=== PATIENT | male | born 1940 | race Caucasian/White ===

== ENCOUNTER 2016-07-05 08:39 | Emergency (ER) | payer MEDICARE, BC ==
[~2016-07-05] VITALS: Ht 177.8 cm; Wt 74.2 kg
[~2016-07-05 08:39] MED LIST: FLUTI44I INH; IBUP200C PO; PARO10TA2 PO; SIMV40TA PO
[2016-07-05 08:52] VITALS: BP 144/95; PULSE 77; RESP 16; TEMP 98.5; O2SAT 94
[2016-07-05] MEDS ORDERED: SODIUM CHLOR 0.9% 1000 ML INJ 1,000 ML IV ONE (09:30)
[2016-07-05] MEDS ORDERED: ONDANSETRON HCL 4 MG/2 ML VIAL IV PUSH ONE (09:30)
--- NOTE | 2016-07-05 09:37 | PD ---
HPI Chief Complaint: Abdominal Pain Time Seen by Provider: 09:16 Travel History International Travel<30 days: No Contact w/Intl Traveler<30days: No Traveled to known affect area: No History of Present Illness HPI This 75-year-old male is complaining of nausea and diarrhea. He says he has been sick since Saturday morning. Saturday morning he had some vomiting and some lower abdominal pain. She is having lower abdominal pain and diarrhea. He is also nauseated. He has not been eating much. Review of previous chart shows that in 2011 he had a small bowel obstruction secondary to an internal hernia. He had surgery at that time and has done well since then. He has also had a cholecystectomy many years ago. The diarrhea he's been having has been very watery. There has not been blood. There has not been any trauma. He does not recall eating anything unusual. Nobody else at home has been sick. 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) Cardiovascular Problems: No High Cholesterol: Yes Chemotherapy: No Chest Pain: Yes Diabetes: No Diminished Hearing: No Endocrine: No Gastrointestinal Disorders: No Glaucoma: Yes Genitourinary: Yes (PROSTATE CANCER, BLADDER STONES) Hepatitis: No Hiatal Hernia: No Hypertension: Yes (HTN AFTER HERNIA SX, NOT CURRENT) Immune Disorder: No Implanted Vascular Access Dvce: No Medical other: Yes (HIGH CHOLESTEROL) Musculoskeletal: Yes (HX OF DISK PROBLEMS IN NECK, FUSION) Neurologic: No Psychiatric: No Reproductive: No Respiratory: No Immunizations Current: No Radiation Therapy: Yes Thyroid Disease: No Past Surgical History Abdominal Surgery: Yes ( R INGUINAL HERNIA REPAIR, CHOLECYSTECTOMY) Body Medical Devices: PLATES AND SCREWS IN NECK Cardiac Surgery: No Cholecystectomy: Yes Joint Replacement: No Neurologic Surgery: Yes (CERVICAL FUSION) Oral Surgery: Yes (SINUS SX) Pacemaker: No Other Surgery: Yes Social History Alcohol Use: Yes (RARELY) Tobacco Use: No Substance Use: No Allergies-Medications (Allergen,Severity, Reaction): Coded Allergies: Penicillin (Verified Allergy, Mild, ORAL PENICILLIN CAUSES STOMACH UPSET, 07/05/16) Reported Meds & Prescriptions Reported Meds & Active Scripts Active Reported Simvastatin 40 Mg Tab 40 Mg PO HS Paroxetine (Paroxetine HCl) 10 Mg Tab 10 Mg PO DAILY Flovent Hfa 10.6 GM Inh (Fluticasone Propionate) 44 Mcg/Act Inh 2 Puff INH BID Use daily at the same time. Review of Systems General / Constitutional: No: Fever, Chills Eyes: No: Diploplia, Blurred Vision HENT: No: Headaches, Vertigo Cardiovascular: No: Chest Pain or Discomfort, Palpitations Respiratory: No: Cough, Shortness of Breath Gastrointestinal: Positive: Nausea, Diarrhea, Abdominal Pain, No: Constipation Genitourinary: No: Frequency, Nocturia Musculoskeletal: No: Myalgias, Arthralgias Skin: No Rash, No Itching Neurologic: No: Weakness, Dizziness Hematologic/Lymphatic: No: Easy Bruising Physical Exam Narrative GENERAL: Well-developed male SKIN: Focused skin assessment warm/dry. HEAD: Atraumatic. Normocephalic. EYES: Pupils equal and round. No scleral icterus. No injection or drainage. ENT: No nasal bleeding or discharge. Mucous membranes pink and moist. NECK: Trachea midline. No JVD. CARDIOVASCULAR: Regular rate and rhythm. No murmur appreciated. RESPIRATORY: No accessory muscle use. Clear to auscultation. Breath sounds equal bilaterally. GASTROINTESTINAL: Abdomen soft, there is some lower abdominal tenderness without guarding, nondistended. Hepatic and splenic margins not palpable. MUSCULOSKELETAL: No obvious deformities. No clubbing. No cyanosis. No edema. NEUROLOGICAL: Awake and alert. No obvious cranial nerve deficits. Motor grossly within normal limits. Normal speech. PSYCHIATRIC: Appropriate mood and affect; insight and judgment normal. Data Data Last Documented VS Vital Signs Date Time Temp Pulse Resp B/P Pulse Ox O2 Delivery O2 Flow Rate FiO2 07/05/16 11:47 68 18 145/80 95 07/05/16 08:52 98.5 Orders Complete Blood Count With Diff (07/05/16 09:26) Comprehensive Metabolic Panel (07/05/16 09:26) Urinalysis - C+S If Indicated (07/05/16 09:26) Enteric Path (Stool) (07/05/16 09:26) C Diff Toxin Pcr (07/05/16 09:26) Sodium Chlor 0.9% 1000 Ml Inj (Ns 1000 M (07/05/16 09:30) Ondansetron Inj (Zofran Inj) (07/05/16 09:30) Sodium Chlorid 0.9% 500 Ml Inj (Ns 500 M (07/05/16 10:15) Ct Abd/Pel W/O Iv Contrast (07/05/16 09:26) Labs Laboratory Tests Test 07/05/16 07/05/16 09:35 10:15 White Blood Count 7.2 TH/MM3 Red Blood Count 5.33 MIL/MM3 Hemoglobin 15.7 GM/DL Hematocrit 48.6 % Mean Corpuscular Volume 91.0 FL Mean Corpuscular Hemoglobin 29.5 PG Mean Corpuscular Hemoglobin 32.4 % Concent Red Cell Distribution Width 13.6 % Platelet Count 306 TH/MM3 Mean Platelet Volume 8.0 FL Neutrophils (%) (Auto) 66.7 % Lymphocytes (%) (Auto) 18.6 % Monocytes (%) (Auto) 9.3 % Eosinophils (%) (Auto) 4.4 % Basophils (%) (Auto) 1.0 % Neutrophils # (Auto) 4.8 TH/MM3 Lymphocytes # (Auto) 1.3 TH/MM3 Monocytes # (Auto) 0.7 TH/MM3 Eosinophils # (Auto) 0.3 TH/MM3 Basophils # (Auto) 0.1 TH/MM3 CBC Comment DIFF FINAL Differential Comment Sodium Level 140 MEQ/L Potassium Level 3.8 MEQ/L Chloride Level 103 MEQ/L Carbon Dioxide Level 28.1 MEQ/L Anion Gap 9 MEQ/L Blood Urea Nitrogen 21 MG/DL Creatinine 1.70 MG/DL Estimat Glomerular Filtration 40 ML/MIN Rate Random Glucose 110 MG/DL Calcium Level 8.5 MG/DL Total Bilirubin 0.9 MG/DL Aspartate Amino Transf 22 U/L (AST/SGOT) Alanine Aminotransferase 27 U/L (ALT/SGPT) Alkaline Phosphatase 52 U/L Total Protein 7.4 GM/DL Albumin 3.7 GM/DL Urine Collection Type CLEAN CATCH Urine Color YELLOW Urine Turbidity CLEAR Urine pH 6.0 Urine Specific [place] 1.024 Urine Protein TRACE mg/dL Urine Glucose (UA) NEG mg/dL Urine Ketones TRACE mg/dL Urine Occult Blood TRACE Urine Nitrite NEG Urine Bilirubin NEG Urine Leukocyte Esterase NEG Urine RBC 0-3 /hpf Urine Squamous Epithelial 0-5 /hpf Cells Urine Mucus FEW /lpf Microscopic Urinalysis Comment CULT NOT INDICATED Urine Collection Time 10:15 MDM Medical Decision Making Medical Screen Exam Complete: Yes Emergency Medical Condition: Yes Medical Record Reviewed: Yes Differential Diagnosis Differential includes enteritis, colitis, gastroenteritis, Narrative Course White count is normal. A CT scan was done as of his history of previous bowel obstruction the CT is negative for obstruction. Patient appears stable. I have encouraged him to continue using the Zofran as needed Diagnosis Primary Impression: Enteritis Referrals: Macrina Silver MD Additional Instructions: Takes Zofran as needed Disposition: 01 DISCHARGE HOME Condition: Stable Zaid Joseph MD Jul 05, 2016 09:37
[2016-07-05 09:38] VITALS: BP 137/81; PULSE 61; RESP 18; O2SAT 94
[2016-07-05 09:44] LABS: AUTOMATED NEUTROPHIL # 4.8 TH/MM3 (1.8-7.7); BASOPHIL # 0.1 TH/MM3 (0-0.2); EOSINOPHIL # 0.3 TH/MM3 (0-0.4); EOSINOPHIL % 4.4 % (0.0-4.0); HEMATOCRIT 48.6 % (39.0-51.0); HEMO FLAGS DIFF FINAL; LYMPH % 18.6 % (9.0-44.0); LYMPHOCYTE # 1.3 TH/MM3 (1.0-4.8); MEAN CORPUSCULAR HEMOGLOBIN 29.5 PG (27.0-34.0); MEAN CORPUSCULAR HGB CONC 32.4 % (32.0-36.0); MONO % 9.3 % (0.0-8.0); NEUT % 66.7 % (16.0-70.0); PLATELET COUNT 306 TH/MM3 (150-450); RED BLOOD COUNT 5.33 MIL/MM3 (4.50-5.90); RED CELL DISTRIBUTION WIDTH 13.6 % (11.6-17.2); WHITE BLOOD COUNT 7.2 TH/MM3 (4.0-11.0)
[2016-07-05 09:54] LABS: BICARBONATE 28.1 MEQ/L (21.0-32.0)
[2016-07-05 09:55] LABS: ANION GAP 9 MEQ/L (5-15); BLOOD UREA NITROGEN 21 MG/DL (7-18); CHLORIDE 103 MEQ/L (98-107); POTASSIUM 3.8 MEQ/L (3.5-5.1); SODIUM (NA) 140 MEQ/L (136-145)
[2016-07-05 09:58] LABS: ALT (GPT) 27 U/L (12-78); GLOMERULAR FILTRATION RATE 40 ML/MIN (>89)
[2016-07-05 09:59] LABS: TOTAL BILIRUBIN ADULT 0.9 MG/DL (0.2-1.0)
[2016-07-05 10:01] LABS: ALKALINE PHOSPHATASE 52 U/L (45-117)
[2016-07-05 10:05] LABS: AST (GOT) 22 U/L (15-37)
[2016-07-05] MEDS ORDERED: SODIUM CHLORID 0.9% 500 ML INJ 500 ML IV ONE (10:15)
[2016-07-05 10:19] LABS: BLOOD, URINE TRACE (NEG); GLUCOSE,URINE NEG (NEG); KETONE, URINE TRACE mg/dL (NEG); NITRITE,URINE NEG (NEG)
[2016-07-05 10:25] LABS: METHOD OF COLLECTION CLEAN CATCH; URINE COLOR YELLOW (YELLW/STRAW)
[2016-07-05 10:26] LABS: COMMENT (UR) CULT NOT INDICATED; CULTURE IF INDICATED CULT NOT INDICATED; MUCUS URINE FEW /lpf (OCC); RBC, URINE 0-3 /hpf (0-3); SQUAMOUS EPITHELIAL CELL URINE 0-5 /hpf (0-5)
[2016-07-05 10:31] VITALS: BP 140/89; PULSE 62; RESP 20; O2SAT 96
--- NOTE | 2016-07-05 11:29 | RADHPO ---
EXAM DATE/TIME: 07/05/2016 10:53 [facility] COMPARISON: No previous studies available for comparison. INDICATIONS : Lower abdominal pain. Diarrhea. History of known right renal calculus. ORAL CONTRAST: No oral contrast ingested. RADIATION DOSE: 7.53 CTDIvol (mGy) MEDICAL HISTORY : Carcinoma, prostate. Renal calculi. Hypertension. SURGICAL HISTORY : Cholecystectomy. Inguinal hernia repair. Fusion, cervical. ENCOUNTER: Initial ACUITY: 4 - 6 days PAIN SCALE: 7/10 LOCATION: Bilateral lower quadrant TECHNIQUE: Volumetric scanning of the abdomen and pelvis was performed. Using automated exposure control and ad justment of the mA and/or kV according to patient size, radiation dose was kept as low as reasonably achievable to obtain optimal diagnostic quality images. FINDINGS: LOWER LUNGS: There is scarring and/or atelectasis in the dependent portions of the lung bases. LIVER: Homogeneous density without lesion. There is no dilation of the biliary tree. Status post cholecyste ctomy. SPLEEN: Normal size without lesion. PANCREAS: Within normal limits. KIDNEYS: Normal in size and shape. There is no mass or hydronephrosis. There are several small nonobstructing right renal calculi measuring 1-3 mm in size. A cyst is again noted in the left kidney. The ureters appear unremarkable. ADRENAL GLANDS: Within normal limits. VASCULAR: There is no aortic aneurysm. BOWEL/MESENTERY: Scattered small diverticuli again noted with no focal inflammatory change or obstruction. There are m ultiple loops of nondilated air-containing small bowel with multiple small air-fluid levels. There is no free air or fluid. ABDOMINAL WALL: Within normal limits. RETROPERITONEUM: There is no lymphadenopathy. BLADDER: No wall thickening or mass. REPRODUCTIVE: Stable appearance with multiple radiation seeds markers in the prostate gland.. INGUINAL: There is no lymphadenopathy or hernia. MUSCULOSKELETAL: Within normal limits for patient age. CONCLUSION: 1. Multiple nonobstructing right renal calculi. 2. Mildly nonspecific, nonobstructive bowel gas pattern which may represent a mild ileus and/or gastr oenteritis. 3. Mild diverticulosis. 4. Status post cholecystectomy. Александр Wadsworth MD on July 05, 2016 at 11:23 Board Certified Radiologist. This report was verified electronically.
[2016-07-05 11:47] VITALS: BP 145/80; PULSE 68; RESP 18; O2SAT 95
== END 2016-07-05 12:31 | disposition home or self-care (01) ==
LOC: PHED 08:39
DX: K52.9 Noninfective gastroenteritis and colitis, unspecified (principal); R10.30 Lower abdominal pain, unspecified
CPT/HCPCS: 74176; 80053; 81001; 85025; 96361; 96374; 99284; J2405; J7030; J7040

== ENCOUNTER → 2017-05-14 | Day surgery (SDC) | payer MEDICARE, BC ==
[~2017-05-14] MED LIST changes: +HYDR-3516 PO; +IBUP1TAB5 PO; -IBUP200C PO; +LIDOCAINE HCL 1% PF 30 ML VIAL INFIL ONE; +MEPERIDINE HCL 25 MG/ML VIAL IV ONE; +MIDAZOLAM HCL 2 MG/2 ML VIAL IV ONE; +PROPOFOL 200 MG/20 ML AMP IV ONE; +SODIUM CHLORIDE 0.9% 10 ML VIAL ONE; +methylPREDNISolone ACETATE 80 MG/ML VIAL ONE
--- NOTE | 2017-05-14 09:17 | M6 ---
cc: Nohemi Owens MD 05/14/2017 Corrected Copy: 05/15/17 PROCEDURE: Radiofrequency rhizotomy, right cervical facet joints (right C3-C4, C4-C5 and C5-C6 facet joints). PROCEDURE NOTE History and physical was completed and signed. Consent was signed. Procedure site was marked. Medications were listed and reconciled. Pain score was recorded. Allergies were noted. Time out was taken. Fluoroscopy time was recorded where applicable. Sedation was administered or directed by Dr. Owens. The patient was given oxygen. The patient was monitored by a registered nurse. Total procedure time was greater than 15 minutes. IV was started. Blood pressure cuff, pulse oximeter and EKG were applied. The patient was placed in the prone position on a [place]vid[place] table, sedated with small amounts of propofol, titrated to effect. Vital signs were monitored and remained stable throughout the procedure. Cervical area was prepped with alcohol, 10% betadine solution and draped with sterile drapes. Fluoroscopy was used in a both AP and lateral position to clearly visualize the target areas, which were the "waist" between the right cervical facet joints, C3-C4, C4-C5 and C5-C6. The skin was infiltrated with 1% Xylocaine using a 27 gauge needle. Then, an insulated 20 gauge radiofrequency needle with a 10 mm curve tip was advanced to the above mentioned target areas. Fluoroscopy was used to confirm the needle was not near the nerve root. Once properly positioned, at 80 degrees centigrade x100 seconds. This was followed by injection of small amount of Depo Medrol at each location for a total of 40 mg of Depo Medrol. Following the procedure, the patient was taken to the recovery room with stable vital signs, neurologically intact. MD MARIZA BustilloM/AARON , 07:59 AM , 09:16 AM
== END | disposition home or self-care (01) ==
LOC: PHSDC 06:24
PROVIDERS: ATTEND Pain Medicine Interventional Pain Medicine
DX: M54.2 Cervicalgia (principal)
CPT/HCPCS: 64633; 64634; 99152; 99153; J1040; J2175; J2250